=== PATIENT | male | born 1970 | race Caucasian/White ===

== ENCOUNTER → 2017-01-23 | Outpatient (CLI) | payer BC, OTHER ==
--- NOTE | 2017-01-25 13:14 | SLEEPHOME ---
DATE OF PROCEDURE: 01/23/2017 REFERRING PROVIDER: Carrie Miranda NP INTERPRETATION: Diagnostic home sleep testing was performed due to concern for the obstructive sleep apnea syndrome in this patient with a history of excessive somnolence. For testing, a NOX-T3 respiratory monitoring device was used. Continuous record was made of pulse, oxygen saturation, air flow, chest and abdominal strain, and body position. 9 hours and 59 minutes of data were reviewed. Of these 8 hours and 1 minute were marked as time in bed. During the interval marked time in bed, there were 142 respiratory events identified of 10 seconds in duration or greater for a respiratory event index of 17. The events were primarily obstructive, but mixed and central apneas were also frequent, a total of 58 of the 104 events were central. The patient's baseline pulse rate was 58 beats per minute. Pulse rate ranged 43 to 93 beats per minute. Baseline saturation was 95%. Lowest oxygen saturation 88%. Testing was performed in both the supine and nonsupine positions. IMPRESSION: Abnormal home sleep testing with repetitive respiratory events and oxygen desaturations to 88% with a respiratory event index of 17.7 is consistent with the obstructive sleep apnea syndrome. The frequency of central events suggest a complex disorder. RECOMMENDATION: The patient should be encouraged to undergo formal sleep evaluation and in laboratory pressure titration. Given the occurrence of central events, the use of a bilevel device and a backup rate may be needed.
== END ==
LOC: M SLEEP HO 10:40
PROVIDERS: ATTEND Nurse Practitioner Adult Health
DX: G47.30 Sleep apnea, unspecified (principal)

== ENCOUNTER → 2017-03-20 | Outpatient (CLI) | payer BC, OTHER ==
--- NOTE | 2017-03-21 20:46 | SLEEPCENT ---
DATE OF PROCEDURE: 03/20/2017 REFERRING PHYSICIAN: Carrie Miranda Nocturnal polysomnography was performed for the titration of pressure therapy in this patient with a clinical diagnosis of obstructive sleep apnea syndrome confirmed by home testing revealing a respiratory event index of 17.7. For testing, the a [employer] Quattro full face mask of medium size was used. 5 cm of water pressure were initially applied to the circuit and the lights were extinguished. 7 hours and 15 minutes of data were reviewed. There were 381 minutes of sleep identified. Sleep latency was mildly prolonged at 16.5 minutes. Rapid eye movement (REM) sleep also mildly prolonged at 90 minutes. Sleep architecture was good and improved with optimal pressure therapy. Overall sleep efficiency was 90.0. The patient's EKG showed a sinus rhythm with an average heart rate of 60 beats per minute. EEG showed fairly normal waveforms for awake and sleep. Respiratory events were best palliated with CPAP at a pressure of +9. Some limb activity was noted but there were no trains of events. Limb movement arousal index on this study was 8. IMPRESSION: Obstructive sleep apnea syndrome (G47.33). RECOMMENDATION: Nightly use of pressure therapy at 9 cm of water.
== END ==
LOC: M SLEEP 19:41
PROVIDERS: ATTEND Nurse Practitioner Adult Health
DX: G47.33 Obstructive sleep apnea (adult) (pediatric) (principal)

== ENCOUNTER → 2018-11-25 | Outpatient (REF) | payer OTHER | LOC: M SMT 13:14 | PROVIDERS: ATTEND Urology | DX: Z30.2 Encounter for sterilization (principal) ==

== ENCOUNTER → 2019-03-12 | Outpatient (REF) | payer BC, OTHER ==
[~2019-03-12] MED LIST: ACIP1TAB; ERYT1OIN26 OS; EZET10TA21
[2019-03-12 09:50] LABS: SEMEN APPEARANCE OPAQUE (OPAQUE); SEMEN VISCOSITY LIQUID (LIQUID); SEMEN VOLUME 5.7 ml (2.0-5.0); SEMEN pH 8.5 (7.0-8.0); WBC CONCENTRATION <=1 M/ml (<=1 M/ml)
== END ==
LOC: M SMT 09:42
PROVIDERS: ATTEND Urology
DX: Z98.52 Vasectomy status (principal)

== ENCOUNTER 2019-05-13 08:50 | Emergency (ER) | payer OTHER, BC ==
[~2019-05-13] VITALS: Ht 175.3 cm; Wt 96.8 kg
[2019-05-13] MEDS ORDERED: EZET10TA21 (08:54)
[2019-05-13] MEDS ORDERED: ACIP1TAB (08:54)
[2019-05-13] MEDS ORDERED: TETRACAINE 0.5% OPHTH SOLN 4ML OS ONE (09:30)
[2019-05-13] MEDS ORDERED: FLUORESCEIN OPHTH 1 MG STRIP OS ONE (09:30)
[2019-05-13] MEDS ORDERED: ERYT1OIN26 OS (10:11)
[2019-05-13] MEDS ORDERED: ERYTHROMYCIN OPHTH OINT OS ONE (10:15)
[2019-05-13 10:17] VITALS: BP 154/96
== END 2019-05-13 10:29 | disposition home or self-care (01) ==
LOC: M ED 08:50
DX: T15.92XA Foreign body on external eye, part unspecified, left eye, initial encounter (principal); X58.XXXA Exposure to other specified factors, initial encounter; Y92.89 Other specified places as the place of occurrence of the external cause; Y99.0 Civilian activity done for income or pay; K21.9 Gastro-esophageal reflux disease without esophagitis; Z79.899 Other long term (current) drug therapy

== ENCOUNTER → 2022-08-13 | Outpatient (REF) | payer BC ==
[~2022-08-13] MED LIST changes: -ERYT1OIN26 OS; +ERYT5OIN25 OS
== END ==
LOC: M LAB REF 14:18
PROVIDERS: ATTEND Physician Assistant
DX: R35.1 Nocturia (principal)

== ENCOUNTER → 2023-03-06 | Outpatient (CLI) | payer BC ==
[2023-03-06 16:46] LABS: HEMATOCRIT 45.8 % (42.0-52.0); HEMOGLOBIN 15.2 g/dl (13.5-17.5); MEAN CORPUSCULAR HEMOGLOBIN 30.6 pg (27.0-33.0); MEAN CORPUSCULAR HGB CONC 33.2 g/dl (32.0-36.5); MEAN CORPUSCULAR VOLUME 92.2 fl (80.0-96.0); PLATELET COUNT, AUTOMATED 281 10^3/uL (150-450); RED BLOOD COUNT 4.97 10^6/uL (4.30-6.10); WHITE BLOOD COUNT 6.5 10^3/uL (4.0-10.0)
[2023-03-06 17:17] LABS: ALBUMIN 3.8 G/DL (3.2-5.2); ALKALINE PHOSPHATASE 85 U/L (46-116); ALT/SGPT 105 U/L (7.0-40); AST/SGOT 47 U/L (<34); BILIRUBIN,TOTAL 0.4 MG/DL (0.3-1.2); BLOOD UREA NITROGEN 14 MG/DL (9-23); CALCIUM LEVEL 9.2 MG/DL (8.5-10.1); CARBON DIOXIDE LEVEL 28 MMOL/L (20-31); CHLORIDE LEVEL 104 MMOL/L (98-107); CHOLESTEROL LEVEL 260 MG/DL (<200); CHOLESTEROL RISK RATIO 5.61 (<5); CREATININE FOR GFR 0.76 MG/DL (0.70-1.30); GLOMERULAR FILTRATION RATE > 60.0 (>56); GLUCOSE, FASTING 99 MG/DL (60-100); HDL CHOLESTEROL 46.3 MG/DL (>40); NON-HDL-C 213.7 MG/DL; POTASSIUM SERUM 4.2 MMOL/L (3.5-5.1); SODIUM LEVEL 141 MMOL/L (136-145); TRIGLYCERIDES LEVEL 564 MG/DL (<150)
== END ==
LOC: M WUC 10:15
PROVIDERS: ATTEND Physician Assistant
DX: M25.512 Pain in left shoulder (principal); M25.511 Pain in right shoulder; E78.5 Hyperlipidemia, unspecified; Z80.0 Family history of malignant neoplasm of digestive organs

== ENCOUNTER → 2023-03-26 | Outpatient (CLI) | payer BC | LOC: M WUC 15:47 | PROVIDERS: ATTEND Physician Assistant | DX: R05.9 Cough, unspecified (principal) ==

== ENCOUNTER → 2024-11-05 | Outpatient (CLI) | payer BC ==
[~2024-11-05] MED LIST changes: -ACIP1TAB; +RABE20TA88
== END ==
LOC: M RAD 13:39
PROVIDERS: ATTEND Physician Assistant
DX: Z12.2 Encounter for screening for malignant neoplasm of respiratory organs (principal); Z87.891 Personal history of nicotine dependence